=== PATIENT | male | born 1985 | race African-American/Black ===

== ENCOUNTER → 2019-07-27 | Outpatient (CLI) | payer MEDICAID ==
[2019-07-27 16:57] LABS: BASOPHILS % 0.3 % (0.0-2.0); EOSINOPHILS % 0.9 % (0.0-5.0); HEMATOCRIT. 48.1 % (42.0-52.0); HEMOGLOBIN. 16.3 g/dL (14.0-18.0); LYMPHOCYTES % 20.4 % (20.0-50.0); MEAN CORPUSCULAR HEMOGLOBIN 29.7 pg (28.0-32.0); MEAN CORPUSCULAR VOLUME 87.5 fL (80.0-94.0); MEAN PLATELET VOLUME 10.3 fl (7.4-10.4); MONOCYTES % 5.9 % (2.0-8.0); NEUTROPHILS % 72.5 % (40.0-76.0); PLATELET 145 x1000/uL (130-400); RED CELL DISTRIBUTION WIDTH 13.5 % (11.6-14.6)
[2019-07-27 17:32] LABS: CHLORIDE 107 mEq/L (98-107)
[2019-07-27 17:39] LABS: LDL CHOLESTEROL 127 mg/dL (5-100)
[2019-07-27 17:41] LABS: HDL CHOLESTEROL 43 mg/dL (40-59)
[2019-07-27 18:01] LABS: HEPATITIS B SURFACE ANTIGEN NEGATIVE
[2019-07-27 18:06] LABS: VITAMIN B12 SERUM 531 pg/mL (211-911)
[2019-07-27 18:31] LABS: HEPATITIS A AB IGM NEGATIVE (NEGATIVE)
[2019-07-29 07:07] LABS: HIV SCREEN 4G Non Reactive (Non Reactive); VITAMIN D 25-OH 14.8 ng/mL (30.0-100.0)
== END | disposition home or self-care (01) ==
LOC: LAB 15:21
PROVIDERS: ATTEND Psychiatry & Neurology Neurology
DX: G40.909 Epilepsy, unspecified, not intractable, without status epilepticus (principal)
CPT/HCPCS: 36415; 80053; 80061; 80185; 80339; 82306; 82607; 83036; 84443; 85025; 86592; 86705; 86709; 86803; 87340; 87389